=== PATIENT | male | born 1965 | race African-American/Black ===

== ENCOUNTER 2017-07-07 19:55 | Emergency (ER) | payer SELFPAY ==
[2017-07-07] MEDS: TETRACAINE 0.5% OPHTH SOLUTION 4ML BOTTLE. OS (22:50)
[2017-07-07] MEDS: cloNIDine HCL 0.1 MG TABLET PO (22:50)
[2017-07-07] MEDS: LISINOPRIL 10 MG TABLET PO (23:45)
== END 2017-07-07 23:40 | disposition home or self-care (01) ==
LOC: ER 19:55
DX: H53.142 Visual discomfort, left eye (principal); I10 Essential (primary) hypertension
CPT/HCPCS: 70450; 99284-25